=== PATIENT | male | born 1980 | race Caucasian/White ===

== ENCOUNTER 2022-12-28 18:21 | Emergency (ER) | payer MEDICAID, SELFPAY ==
[2022-12-28 18:22] VITALS: BP 173/69; PULSE 108; RESP 20; TEMP 36.2; O2SAT 99; BMI 21.9
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
[2022-12-28] MEDS: Morphine 4 MG/ML Syringe IM (18:47)
[2022-12-28] MEDS: Ondansetron ODT 4 MG Tablet PO (18:49)
--- NOTE | 2022-12-28 19:24 | RAD_ITS ---
STUDY: X-RAY - RIGHT CLAVICLE REASON FOR EXAM: Male, 42 years old. pain TECHNIQUE: 2 view(s) of the clavicle. COMPARISON: None. FINDINGS: Normal clavicle. Increased AC joint. Distal clavicle elevated. Normal visualized sternoclavicular articulation. Normal visualized pulmonary apex. RAD/Clavicle IMPRESSION: Third degree AC joint strain. No fracture noted. Electronically Signed: Shayan Lucero MD at 20:02 EDT ,
--- NOTE | 2022-12-28 19:24 | RAD_ITS ---
STUDY: X-RAY - RIGHT SHOULDER REASON FOR EXAM: Male, 42 years old. pain TECHNIQUE: 2 view(s) of the shoulder. COMPARISON: None. FINDINGS: Normal glenohumeral articulation. Widening of the AC joint. Distal clavicle appears slightly elevated. Normal acromion. Normal humeral head and visualized proximal humerus. The soft tissue structures are unremarkable. Normal visualized pulmonary apex. RAD/Shoulder min 2 Views IMPRESSION: Probable AC separation, age indeterminate. No fracture noted. Electronically Signed: Shayan Lucero MD at 20:01 EDT ,
[2022-12-28] MEDS: Ibuprofen 600 MG Tablet PO (20:14)
[2022-12-28 20:26] VITALS: BP 128/74; PULSE 64; RESP 15; O2SAT 98
== END 2022-12-28 21:10 | disposition home or self-care (01) ==
PROVIDERS: Emergency Provider Emergency Medicine; Visit Provider Emergency Medicine
DX: S43.51XA Sprain of right acromioclavicular joint, initial encounter (principal); V19.9XXA Pedal cyclist (driver) (passenger) injured in unspecified traffic accident, initial encounter
CPT/HCPCS: 73000; 73030; 96372; 99283

== ENCOUNTER 2024-03-25 15:15 | Emergency (ER) | payer MEDICAID, SELFPAY ==
[2024-03-25 15:16] VITALS: BP 143/92; PULSE 86; RESP 16; TEMP 36.2; O2SAT 99; BMI 21.4
--- NOTE | 2024-03-25 15:47 | EKG12_ITS ---
Test Reason : cp Blood Pressure : / mmHG Vent. Rate : 075 BPM Atrial Rate : 075 BPM P-R Int : 152 ms QRS Dur : 100 ms QT Int : 374 ms P-R-T Axes : 090 081 063 degrees QTc Int : 417 ms Normal sinus rhythm with sinus arrhythmia Possible Left atrial enlargement Incomplete right bundle branch block Borderline ECG Confirmed by Mark Ho ([id number]), script editor ALISHA MAY ([id number]) on 03/28/2024 10:38:59 AM Referred By: Confirmed By:Mark Ho
--- NOTE | 2024-03-25 15:48 | RAD_ITS ---
EXAM: XR CHEST, 1 VIEW CLINICAL INDICATION: chest pain TECHNIQUE: Frontal view of the chest. COMPARISON: No relevant prior studies available. FINDINGS: LUNGS AND PLEURAL SPACES: Normal. No consolidation or edema. No pneumothorax. No effusion. HEART: Normal heart size. MEDIASTINUM: No mediastinal or hilar mass. BONES/JOINTS: No acute abnormality. RAD/Chest 1 View (Portable) IMPRESSION: No acute cardiopulmonary disease. Electronically Signed: Cisco Mar MD at 16:04 EDT ,
--- NOTE | 2024-03-25 15:48 | EDS_ITS ---
HPI History of Present Illness Chief Complaint: Chest Pain Informant: patient and spouse/S.O. Narrative Narrative: Very pleasant 43-year-old male presenting to the emergency room with intermittent left chest pain. Patient states that he recently moved here from [facility] originally from [facility]. He states that he woke up yesterday morning and was having intermittent pulling like sensation just underneath his left breast. He states it was very frequent yesterday would last seconds and then resolve nothing seems to make it better or worse. No particular position would bring it on it is not tender to touch. Denies any recent illnesses or cough. Patient cannot recall anything that would have injured the chest. He states he has a history of colon cancer and now that he is moved to [place] needs to apply for his insurance so he can get his screening colonoscopy as there is a strong family history. He states his colon cancer was found on polypectomy. He has not had a colectomy radiation or chemotherapy. Patient denies any cough or fever. He states that the pulling sensation does seem to take his breath away. He denies any leg swelling pelvic pain. Pain does not radiate to the back. He denies any arm or leg symptoms. He denies any abdominal pain vomiting reflux. Denies any pencil thin black or bloody stools. [facility] Medical History Back pain Meningitis Home Medications ?Medication ?Instructions ?Recorded ?Last Taken ?Type NK 03/25/24 Unknown History Allergy/AdvReac Type Severity Reaction Status Date / Time No Known Allergies Allergy Verified 03/25/24 15:15 Social History Smoking Status: Never smoker ROS ROS ED Constitutional Constitutional ED: Denies chills, fever(s) or weight loss Eyes Eyes: Denies change in vision or diplopia ENT ENT ED: Denies ear pain, rhinorrhea or sore throat Cardiovascular Cardiovascular: Reports as per HPI and chest pain; Denies orthopnea, palpitations or racing heartbeat Respiratory/Chest Respiratory/Chest: Reports dyspnea; Denies cough, dyspnea on exertion or orthopnea Gastrointestinal Gastrointestinal: Denies abdominal pain, diarrhea, nausea or vomiting Genitourinary Genitourinary ED: Denies dysuria, hematuria or urinary frequency Musculoskeletal Musculoskeletal: Denies arthralgias, back pain, myalgias or neck pain Integumentary Denies abscess or rash Neurologic Neurologic: Denies headache(s) or weakness Psychiatric Psychiatric: Denies anxiety, depression, suicidal ideation or suicidal thoughts Endocrine Endocrinology: Denies polydipsia, polyphagia or polyuria Allergic/Immunologic Allergic/Immunologic ED: Denies mouth swelling, tongue swelling or urticaria EXAM Physical Exam Const Vital Signs: 03/25/24 15:16 03/25/24 15:31 Temperature 97.1 F L Temperature Source Temporal Pulse Rate 86 Respiratory Rate 16 Respiratory Effort Normal Blood Pressure 143/92 H Blood Pressure Mean 109 Pulse Ox 99 Oxygen Delivery Method Room Air Positive well nourished and well developed General Appearance ED: well developed HEENT Reports normocephalic, head/scalp atraumatic and moist mucous membranes Eyes PERRL and EOMs intact bilaterally Neck no lymphadenopathy, supple and no JVD Resp normal respiratory effort and clear to auscultation bilaterally Cardio regular rate, regular rhythm and no murmurs GI normal to inspection, nondistended, normoactive bowel sounds and non-tender Palpation: soft Back/Spine no CVA tenderness and normal ROM Extremity normal to inspection General Extremety ED: Negative for edema General Extremity: Negative for edema Neuro oriented x3 and CN's II-XII intact bilaterally Sensorium / Orientation: alert Motor Exam: strength 5/5 throughout Psych mental status grossly normal Mood & Affect: Negative for depressed or tearful Skin no rashes or lesions noted and no wounds Heart Score History: Slightly/Non-Suspicious ECG: Normal Age: </= 45 years Risk Factors: No Risk Factors Troponin: </= Normal Limit Score: 0 MDM MDM MDM Narrative Medical decision making narrative: Differential diagnosis includes but not limited to ACS, reflux, chest wall pain, aortic dissection, pulmonary embolism, pleural effusion, pneumothorax, pleurisy. Patient had an episode of what he was describing while I was in the room. He did not have any change on the rhythm strip on the monitor. EKG demonstrates a normal sinus rhythm at a ventricular rate of 75 bpm. There is no concerning features of ACS noted. D-dimer is normal troponin is normal. CBC is normal. BMP is normal. My independent interpretation of the chest x-ray is no acute process. Normal mediastinal silhouette. No pleural effusion is noted. Given the above workup and the history I think the symptoms are most likely related to chest wall related perhaps a intercostal muscle spasm. I think with heat gentle stretching and adequate hydration the patient should do okay. He was given return instructions. He notes understanding the plan is comfortable with it. He needs a colonoscopy. I will give him several different options from [place] [facility] to [place] [facility]. Significant other notes that she is going to try to get him into [facility] min until their insurance is obtained. History & Record Review Discussion w/independent historian: Patient and Significant other Lab Data Attestation: I reviewed the patient's lab results. Labs: Laboratory Results - last 24 hr 03/25/24 15:30 WBC 5.7 RBC 4.99 Hgb 14.9 Hct 43.6 MCV 87.4 MCH 29.9 MCHC 34.2 RDW Std Deviation 38.8 RDW Coeff of Mandi 12.1 Plt Count 193 MPV 9.7 Immature Gran % (Auto) 0.200 Neut % (Auto) 67.9 Lymph % (Auto) 23.5 [place] % (Auto) 7.4 Eos % (Auto) 0.5 Baso % (Auto) 0.5 Absolute Neuts (auto) 3.8 Absolute Lymphs (auto) 1.33 Nucleated RBC % 0 D-Dimer Quant (PE/DVT) < 0.27 L Sodium 139 Potassium 3.7 Chloride 104 Carbon Dioxide 29.0 Anion Gap 6 BUN 17 Creatinine 1.11 Estim Creat Clear Calc 90.66 Est GFR (MDRD) Af Amer 93 Est GFR (MDRD) Non-Af 77 BUN/Creatinine Ratio 15.3 Glucose 102 Calcium 9.0 Magnesium 2.0 Troponin I High Sens 4 Radiography Diagnostic Testing: Clinical Impression(s) from Imaging Studies Chest X-Ray 03/25/24 15:48 IMPRESSION: No acute cardiopulmonary disease. Electronically Signed: Cisco Mar MD at 16:04 EDT , EKG Initial EKG: Attestation: I personally reviewed and interpreted this EKG as follows: Comments: Normal sinus rhythm with a ventricular rate of 75 bpm. Incomplete right bundle branch block noted. Discharge Plan Triage Chief Complaint: Chest Pain ED Provider: Qasim Niño Dx/Rx/DC Orders Clinical Impression: Chest pain Instructions: ED Chest Pain, Uncertain Cause Prescriptions: No Action NK Primary Care Provider: Care Physician,No Primary Referrals: Mark Hayes MD [Med Staff - Active Staff] - (for colonoscopy) Armando Gross DO [Med Staff - Active Staff] - (For gastroenterology/colonoscopy) Michaela Gonzales [Non-Staff] - As soon as possible (for primary care) Care Physician,No Primary [Primary Care Provider] - Print Language: Indonesian Disposition Disposition: Home, Self Care
[2024-03-25 15:59] LABS: Absolute Lymphocyte Count 1.33 X10^3/uL (0.83-4.51); Absolute Neutrophil Count 3.8 X10^3/uL (2.0-7.7); Basophil# 0.03 X10^3/uL; Basophil% 0.5 % (0-1); Eosinophil# 0.03 X10^3/uL; Eosinophils% 0.5 % (0-5); Hematocrit 43.6 % (40-54); Hemoglobin 14.9 g/dL (13.0-16.5); Lymphocyte # 1.33 X10^3/ul (0.83-4.51); Lymphocyte % 23.5 % (19-41); Mean Corp Hgb Conc 34.2 g/dL (32-36); Mean Corpuscular Hgb 29.9 pg (27.0-32.0); Mean Corpuscular Volume 87.4 fL (80-94); Mean Platelet Vol. 9.7 fl (6.2-12.0); Monocyte# 0.42 X10^3/uL; Monocyte% 7.4 % (0-10); NRBC Flagged by Analyzer 0 % (0-5); Neutrophil # 3.83 X10^3/uL (2.7-7.7); Neutrophil % 67.9 % (47-70); Platelet Count 193 K/mm3 (150-450); RBC Distribution Width CV 12.1 % (11.6-14.6); RBC Distribution Width SD 38.8 fl (35.1-43.9); Red Blood Count 4.99 M/mm3 (4.6-6.2); White Blood Count 5.7 K/mm3 (4.4-11.0)
[2024-03-25 16:13] LABS: D-Dimer Quantitative (DVT/PE) < 0.27 FEU/ug/m (0.27-0.49)
[2024-03-25 16:16] LABS: Anion Gap 6 (5-15); BUN 17 mg/dL (7-18); BUN/Creat Ratio 15.3 RATIO (10-20); Chloride 104 mmol/L (98-107); Creatinine, Serum 1.11 mg/dL (0.70-1.30); EST Glomerular Filtration Rate 77 mL/min (>60); Est Glom Filt Rate - Afr Amer 93 mL/min (>60); Estimated Creatinine Clearance 90.66 ml/min; Glucose 102 mg/dL (74-106); Potassium 3.7 mmol/L (3.5-5.1); Sodium Level 139 mmol/L (136-145); Troponin-I HS (w/2H Reflex) 4 pg/mL (3.0-78.0)
[2024-03-25 16:52] VITALS: BP 105/71; PULSE 85; RESP 16; TEMP 36.9; O2SAT 97
[2024-03-25 17:54] LABS: Reflex Troponin-HS? (from REC) Y
== END 2024-03-25 16:53 | disposition home or self-care (01) ==
PROVIDERS: Emergency Provider Emergency Medicine; Visit Provider Emergency Medicine
DX: R07.89 Other chest pain (principal); Z85.038 Personal history of other malignant neoplasm of large intestine; Z80.0 Family history of malignant neoplasm of digestive organs
CPT/HCPCS: 71045; 80048; 83735; 84484; 85025; 85379; 93005; 99283; A4216

== ENCOUNTER 2024-08-23 09:21 | Day surgery (SDC) | payer MEDICAID, SELFPAY ==
[2024-08-23] VITALS (8 sets, daily range): BP systolic 100–120; BP diastolic 71–97; PULSE 16–82; RESP 14–18; TEMP 36.3–37.6; O2SAT 98–100; BMI 19.8
--- NOTE | 2024-08-23 | COLBX_PTH ---
PATIENT: XIAO MORIN LOC: EN U#:[id number] AGE/SX: 43/M ROOM: RE08/23/[address]: Dr. Julian Jacome MD : 1980 BED: DIS: 08/23/2024 SPEC #: [id number] RECD: 08/23/24 12:41 STATUS: JAXON GOLDEN #: [id number] JOHANA: 08/23/24 00:[address]: Julian Jacome DEPT: SURGICAL PATHOLOGY RECD BY: Jose Kuhn ENTERED: 08/23/24 12:41 SP TYPE: COLON BX OTHR DR: Leatha Meyer, [facility], DO Tissues: A - Sigmoid colon biopsy B - Rectum, NOS Procedures: Surgery Specimen Level IV HEADER OPERATION: Colonoscopy with biopsy PRE-OP DIAGNOSIS: History of colon cancer TISSUE SUBMITTED: A- Sigmoid polyp biopsy, B- Rectal polyp biopsy MICROSCOPIC DIAGNOSIS A. Sigmoid colon polyp, biopsy: Fragments of benign colonic mucosa with focal hyperplastic change. B. Rectal polyp, biopsy: A fragment of colonic mucosa with focal hyperplastic change. AM. 08/24/2024 MICROSCOPIC DESCRIPTION Slides are reviewed. GROSS DESCRIPTION A. Received in fixative is one container labeled with the patient's name and designated Sigmoid polyp biopsy. The specimen consists of two irregular fragments of light abdi soft tissue that in aggregate measure 0.7 x 0.6 x 0.1 cm. The specimen is totally submitted in one cassette. B. Received in fixative is one container labeled with the patient's name and designated Rectal polyp biopsy. The specimen consists of one irregular fragment of light abdi soft tissue that measures 0.5 x 0.5 x 0.1 cm. The specimen is totally submitted in one cassette. AM. 08/23/2024 TC:5 CPT:81852j2
--- NOTE | 2024-08-23 10:06 | PCM.PRE.AN2 ---
ASA Classification* ASA Classification ASA Classification: 2 (Patient smokes marijuana.) Assessment & Plan Anesthesia* Anesthesia Assessment Anesthesia Assessment: Discussed sedation and/or anesthesia options, risks, benefits, and alternatives with patient/parents/legal guardian/POA. Questions invited. The patient/parents/legal guardian/POA seems to understand and agrees to proceed with anesthesia plan. Reviewed the physical assessment, medical history, allergy history and patient home medications list prior to surgery/procedure/anesthetic and documented any changes. Performed airway and anesthesia risk assessments. Anesthesia Type Anesthesia Type: MAC History Source History Obtained from:: Patient and Chart Anesthesia Focused Assessment* Temperature: 97.8 F Pulse Rate: 82 Blood Pressure: 120/97 Respiratory Rate: 18 Pulse Ox: 100 Oxygen Delivery Method: Room Air Airway Assessment Mouth opens: >3 cm Mallampati Score: I Teeth Condition: Chipped/Broken (Tooth #3 is chipped and mostly missing. Rest of the teeth are tight) Neck Range of motion (ROM): Full ROM Focused Labs Anesthesia Preop lab: CBC WBC 5.7 K/mm3 (4.4-11.0) 03/25/24 15:30 RBC 4.99 M/mm3 (4.6-6.2) 03/25/24 15:30 Hgb 14.9 g/dL (13.0-16.5) 03/25/24 15:30 Hct 43.6 % (40-54) 03/25/24 15:30 Plt Count 193 K/mm3 (150-450) 03/25/24 15:30 CHEMISTRY Potassium 3.7 mmol/L (3.5-5.1) 03/25/24 15:30 Sodium 139 mmol/L (136-145) 03/25/24 15:30 Magnesium 2.0 mg/dL (1.6-2.6) 03/25/24 15:30 BUN 17 mg/dL (7-18) 03/25/24 15:30 Creatinine 1.11 mg/dL (0.70-1.30) 03/25/24 15:30 Glucose 102 mg/dL (74-106) 03/25/24 15:30 COAG Pre-Assessment Diagnosis/Proposed Procedure Planned Operative Procedure(s): CSCOPE Anesthesia History Anesthesia History - molasses feed mixer: Anesthesia History - molasses feed mixer Hx Hospitalization No 08/22/24 14:23 Any Problems With Anesthesia No 08/22/24 14:23 Cholinesterase deficiency No 08/22/24 14:23 You/Your Family Experience No 08/22/24 14:23 fever (hyperthermia) with Relationship Recent Exposure to Contagious No 08/23/24 09:53 Disease Does patient have nerve No 08/22/24 14:23 stimulator Patient instructed to have device shut off --Does patient have Pacemaker No 08/23/24 09:53 or ICD? When Was Last Pacemaker Check QUESTION #4 FULL TEXT: You/Your Family Experience fever (hyperthermia) with Anesthesia Last Oral Intake Last Oral intake: Last Oral Intake NPO since 04:00 08/23/24 09:53 Meds taken in AM with sips of water? Meds patient instructed to take am of surgery PONV PONV - molasses feed mixer: PONV - molasses feed mixer Female No 08/22/24 14:23 HX of Motion Sickness No 08/22/24 14:23 HX of N/V After Surgery No 08/22/24 14:23 Non-Smoker Yes 08/22/24 14:23 Duration of Surgery greater No 08/22/24 14:23 than 60 minutes Number of Risk Factors 1 08/22/24 14:23 PONV Score Low Risk 08/22/24 14:23 Height & Weight Height & Weight: Anesthesia: Height & Weight Height 6 ft 2 in 08/23/24 09:53 Weight: 70 kg 08/23/24 09:53 Body Mass Index (BMI) 19.8 08/23/24 09:53 Respiratory Assessment Respiratory Assessment - molasses feed mixer: Respiratory Tract Infection Hx - molasses feed mixer Hx Respiratory Tract Infection No 08/22/24 14:23 STOP Sleep Apnea STOP Sleep Apnea - molasses feed mixer: STOP Sleep Apnea - molasses feed mixer Hx Hypertension No 08/22/24 14:23 Hx Sleep Apnea No 08/22/24 14:23 CPAP BIPAP Do you snore loudly (louder No 08/22/24 14:23 than talking or can be heard Do you often feel tired/ No 08/22/24 14:23 fatigued/ sleepy during daytime? Has anyone observed you stop No 08/22/24 14:23 breathing during sleep? STOP Results Negative 08/22/24 14:23 QUESTION #5 FULL TEXT : Do you snore loudly (louder than talking or can be heard through closed doors)? Tobacco Use History Tobacco Use History - molasses feed mixer: Tobacco Use History - molasses feed mixer Tobacco Use Smoking Status Never smoker 08/22/24 14:23 Hx Tobacco Use No 08/22/24 14:23 Years Smoking Packs Smoked per Day Smoking Cessation Date was within the last 15 years Hx Smoking Cessation Date Hx Smoking Cessation Counseling Hematologic Medial History Hematologic Hx - molasses feed mixer: Hematologic Medical Hx - pickling grader Hx of Blood Transfusion No 08/22/24 14:23 Hx of Transfusion in last 3 No 08/22/24 14:23 Months Date of Last Transfusion (if within last 3 months) Ever experience any problems No 08/22/24 14:23 with transfusion(s)? Specify any problems Hx of Preganancy in last 3 N/A 08/22/24 14:23 Months Nurse Filling Out Transfusion DSCHRIBER 08/22/24 14:23 & Questions: Date: 08/22/24 08/22/24 14:23 Time: 14:24 08/22/24 14:23 Patient unable to answer at this time (ie. confused, unrespo /Reproduction History /Reproductive History - molasses feed mixer: /Reproductive Hx- molasses feed mixer Hx Now No 08/22/24 14:23 Gestational Age (in weeks): EDC: Hx Hx Para Hx Section SAB No 08/22/24 14:23 PFSH Medical History Loose, teeth Alcohol use Marijuana use Non-smoker History of colon cancer Colon cancer Back pain Meningitis Home Medications ?Medication ?Instructions ?Recorded ?Last Taken ?Type NK 03/25/24 Unknown History Allergy/AdvReac Type Severity Reaction Status Date / Time No Known Allergies Allergy Verified 08/23/24 09:52 Family History Brother Colon cancer Mother Colon cancer Sister Colon cancer Surgical History H/O colonoscopy Social History Smoking Status: Never smoker Review of Systems (Anesthesia) ROS Narrative System reviewed and no additional complaints, except as documented.
--- NOTE | 2024-08-23 10:13 | PCM.HP.STD ---
[facility] - General General Date of Admission: 08/23/24 Date of Service: 08/23/24 Chief Complaint: Surveillance colonoscopy HPI Narrative XIAO MORIN, is a 43 M who presents for surveillance colonoscopy. He has a history of colon cancer treated about 10 years ago while living in [place]. It sounds as though he had a colonoscopy about 2 years after the surgery and has not had a colonoscopy since. So it has been about 8 years since his last colonoscopy. He denies any issues or problems. He does have a significant family history of colon cancer. He denies any GI issues or complaints and presents today for colonoscopy. [facility] Medical History Loose, teeth Alcohol use Marijuana use Non-smoker History of colon cancer Colon cancer Back pain Meningitis Home Medications ?Medication ?Instructions ?Recorded ?Last Taken ?Type NK 03/25/24 Unknown History Allergy/AdvReac Type Severity Reaction Status Date / Time No Known Allergies Allergy Verified 08/23/24 09:52 Family History Brother Colon cancer Mother Colon cancer Sister Colon cancer Surgical History H/O colonoscopy Social History Smoking Status: Never smoker Vital Signs Vital Signs Vital Signs: 08/23/24 09:53 08/23/24 09:53 08/23/24 10:09 Temperature 97.8 F 97.8 F Temperature Source Temporal Pulse Rate 82 82 Respiratory Rate 18 18 Respiratory Pattern Normal Blood Pressure 120/97 H 120/97 H Blood Pressure Mean 104 Blood Pressure Source Monitor Blood Pressure Position Sitting Blood Pressure Location Right Arm Pulse Ox 100 100 Oxygen Delivery Method Room Air Room Air Weight Weight: 154 lb 5.177 oz Body Mass Index (BMI) 19.8 Physical Exam Narrative He is alert and oriented x 3. He is in no acute distress. Pupils are equal round and reactive to light. Extraocular muscles are intact. Abdomen is soft, nontender nondistended. Assessment & Plan Assessment/Plan (1) History of colon cancer: PLAN: The patient is a 43-year-old male with a history of colon cancer treated surgically about 10 years ago. He has not had a colonoscopy in about 8 years. He denies any issues or complaints. He presents today for colonoscopy. Procedure again was reviewed with him including risk benefits and alternatives. He wishes to proceed. Procedure will begin momentarily.
--- NOTE | 2024-08-23 10:57 | OP.COLON_ITS ---
Patient Name: Delano Hall Procedure Date: 08/23/2024 10:09 AM Date of : 1980 Age: 43 Procedure: Colonoscopy Indications: High risk colon cancer surveillance: Personal history of colon cancer Providers: Julian Jacome MD Medicines: Monitored Anesthesia Care Patient Profile: Refer to note in patient chart for documentation of history and physical. Last Colonoscopy: 10 years ago. Complications: No immediate complications. Estimated blood loss: Minimal. Procedure: Pre-Anesthesia Assessment: - Prior to the procedure, a History and Physical was performed, and patient medications and allergies were reviewed. The patient's tolerance of previous anesthesia was also reviewed. The risks and benefits of the procedure and the sedation options and risks were discussed with the patient. All questions were answered, and informed consent was obtained. Prior Anticoagulants: The patient has taken no anticoagulant or antiplatelet agents. ASA Grade Assessment: II - A patient with mild systemic disease. After reviewing the risks and benefits, the patient was deemed in satisfactory condition to undergo the procedure. After I obtained informed consent, the scope was passed under direct vision. Throughout the procedure, the patient's blood pressure, pulse, and oxygen saturations were monitored continuously. The colonoscope was introduced through the anus and advanced to the cecum, identified by the appendiceal orifice, ileocecal valve and palpation. The ileocecal valve, appendiceal orifice, and rectum were photographed. The entire colon was well visualized. The colonoscopy was performed without difficulty. The patient tolerated the procedure well. The quality of the bowel preparation was fair. Moderate Sedation: See the other procedure note for documentation of moderate sedation with intraservice time. See the other procedure note for documentation of moderate sedation with intraservice time. Scope In: 10:21:29 AM Scope Withdrawal Time 0 hours 17 minutes 46 seconds Scope Out: 10:48:32 AM Total Procedure Duration Time 0 hours 27 minutes 3 seconds Findings: The perianal and digital rectal examinations were normal. Pertinent negatives include normal sphincter tone. Non-bleeding external and internal hemorrhoids were found during endoscopy. The hemorrhoids were mild. A 3 mm polyp was found in the sigmoid colon. The polyp was semi-sessile. The polyp was removed with a cold biopsy forceps. Resection and retrieval were complete. Verification of patient identification for the specimen was done by the nurse using the patient's name, date and medical record number. Estimated blood loss was minimal. A 3 mm polyp was found in the rectum. The polyp was semi-sessile. The polyp was removed with a cold biopsy forceps. Resection and retrieval were complete. Verification of patient identification for the specimen was done by the nurse using the patient's name, date and medical record number. Estimated blood loss was minimal. The exam was otherwise without abnormality on direct and retroflexion views. Impression: - Preparation of the colon was fair. - Non-bleeding external and internal hemorrhoids. - One 3 mm polyp in the sigmoid colon, removed with a cold biopsy forceps. Resected and retrieved. - One 3 mm polyp in the rectum, removed with a cold biopsy forceps. Resected and retrieved. - The examination was otherwise normal on direct and retroflexion views. Recommendation: - Discharge patient to home (ambulatory). - High fiber diet indefinitely. - Await pathology results. - Repeat colonoscopy in 3 years for surveillance. - Return to my office PRN. - Continue present medications. Procedure Code(s): --- Professional --- 49922, Colonoscopy, flexible; with biopsy, single or multiple Diagnosis Code(s): --- Professional --- Z85.038, Personal history of other malignant neoplasm of large intestine K64.8, Other hemorrhoids D12.8, Benign neoplasm of rectum D12.5, Benign neoplasm of sigmoid colon CPT copyright 2021 [employer]. All rights reserved. The codes documented in this report are preliminary and upon braille coder review may be revised to meet current compliance requirements. Julian Jacome MD 08/23/2024 10:56:41 AM This report has been signed electronically. Number of Addenda: 0 Note Initiated On: 08/23/2024 10:09 AM
--- NOTE | 2024-08-23 10:58 | PCM.POST.ANE ---
Anesthesia: Postop Eval I Current Vital Signs Temperature: 97.3 F Pulse Rate: 16 Blood Pressure: 100/71 Respiratory Rate: 16 Pulse Ox: 98 Oxygen Delivery Method: Room Air Assessment Airway patent: Yes Spontaneous unlabored respirations: Yes Mental status: Asleep nausea: No Vomiting: No Anesthesia Complication: No Fluid Hydration Crystalloid volume administer (ml): 70 Total IV fluid infused: 70 Progress Note Anesthesia document: Postop Eval 1 completed: Yes
--- NOTE | 2024-08-23 16:41 | PCM.POSTANE2 ---
Anesthesia Postop Eval I Sum Postop Eval Completion status Anesthesia document: Postop Eval 1 completed: Yes Anesthesia Postop Eval I Summary Anesthesia Postop Eval I Summary: Anesthesia Postop Eval I: Assessment Summary Airway patent Yes 08/23/24 10:59 [email or web address] Spontaneous unlabored Yes 08/23/24 10:59 [email or web address] respirations Mental status Asleep 08/23/24 10:59 [email or web address] nausea No 08/23/24 10:59 [email or web address] Vomiting No 08/23/24 10:59 [email or web address] Anesthesia Postop Eval I: Fluid Summary Crystalloid volume administer 70 08/23/24 10:59 [email or web address] (ml) Colloids volume administered ( ml) Blood Product volume administered (ml) Total IV fluid infused 70 08/23/24 10:59 [email or web address] Anesthesia Postop Eval I: Summary Notes Anesthesia Complication No 08/23/24 10:59 [email or web address] Anesthesia Complication Comment: Post-operative progress note Anesthesia: Postop Eval II Evaluation Mental status: Awake and Calm Pain Level: 0 nausea: No Vomiting: No Complications Anesthesia Complication: No
== END 2024-08-23 11:34 | disposition home or self-care (01) ==
LOC: EN 09:28 → AC 09:29
PROVIDERS: PCP Family Medicine; Referring Provider Family Medicine; Visit Provider Surgery
PROC: 0DJD8ZZ Inspection of Lower Intestinal Tract, Via Natural or Artificial Opening Endoscopic (ICD-10-PCS; CPT 45378; principal; 2024-08-23 10:10)
DX: Z12.11 Encounter for screening for malignant neoplasm of colon (principal); K62.1 Rectal polyp; K63.5 Polyp of colon; Z80.0 Family history of malignant neoplasm of digestive organs; Z85.038 Personal history of other malignant neoplasm of large intestine
CPT/HCPCS: 45380; 88305; A4216; J2405